=== PATIENT | female | born 1995 | race Caucasian/White ===

== ENCOUNTER 2016-06-18 20:55 | Emergency (ER) | payer MEDICAID ==
[~2016-06-18] VITALS: Ht 162.6 cm; Wt 85.8 kg
[2016-06-18 21:03] VITALS: BP 106/63
--- NOTE | 2016-06-19 00:12 | NUR ---
PATIENT PRESENTS TO ED WITH C/O BACK PAIN . PT DENIES N/V/D; SKIN IS PINK/WARM/DRY; AAOX4 WITH EVEN AND STEADY GAIT; LUNGS CLEAR BL; HR EVEN AND REGULAR; PT DENIES ANY FEVER, CP, SOB, OR COUGH AT THIS TIME; PATIENT STATES PAIN OF 6/10 AT THIS TIME; VSS; PATIENT POSITIONED FOR COMFORT; HOB ELEVATED; BEDRAILS UP X2; BED DOWN. ER MD MADE AWARE OF PT STATUS.
--- NOTE | 2016-06-19 00:17 | NUR ---
René mejia in [facility] - 06/19/16 at 0209 by MEDMANJINDER TO ER BED 1
--- NOTE | 2016-06-19 01:14 | NUR ---
DR RICHARD AT BEDSIDE
[2016-06-19] MEDS ORDERED: KETOROLAC 60 MG/2 ML VIAL IM ONE (01:15)
--- NOTE | 2016-06-19 01:49 | NUR ---
Note roberto in EDM - 06/19/16 at 0643 by EMMETT Patient discharged with v/s stable. Written and verbal after care instructions given and explained. Patient alert, oriented and verbalized understanding of instructions. Ambulatory with steady gait. All questions addressed prior to discharge. ID band removed. Patient advised to follow up with PMD. Rx of NORCO AND MOTRIN given. Patient educated on indication of medication including possible reaction and side effects. Opportunity to ask questions provided and answered.
[2016-06-19 01:55] VITALS: BP 104/68
--- NOTE | 2016-06-19 01:55 | NUR ---
Patient discharged with v/s stable. Written and verbal after care instructions given and explained. Patient alert, oriented and verbalized understanding of instructions. Ambulatory with steady gait. All questions addressed prior to discharge. ID band removed. Patient advised to follow up with PMD. Rx of NORCO AND MOTRIN given. Patient educated on indication of medication including possible reaction and side effects. Opportunity to ask questions provided and answered.
== END 2016-06-19 01:55 | disposition home or self-care (01) ==
LOC: MED 20:55
DX: M54.5 Low back pain (principal); V89.2XXA Person injured in unspecified motor-vehicle accident, traffic, initial encounter; Y93.89 Activity, other specified; Y92.89 Other specified places as the place of occurrence of the external cause; Y99.8 Other external cause status
CPT/HCPCS: 81002; 81025; 96372; 99283; J1885

== ENCOUNTER 2017-12-06 23:30 | Emergency (ER) | payer MEDICAID ==
[~2017-12-06] VITALS: Ht 152.4 cm; Wt 77.1 kg
[2017-12-06 23:39] VITALS: BP 107/71
--- NOTE | 2017-12-06 23:42 | NUR ---
TO BED # 10 AMBULATORY, REPORT GIVEN TO SINCERE SR
--- NOTE | 2017-12-07 | NUR ---
PT BIB SELF FOR LOWER ABD PAIN S/P HAVING SEX YESTERDAY. PT STATES SHE HAS HAD ABD PAIN FOR 2 WEEKS AND AFTERING HAVING INTERCOURSE SHE HAD INCREASING PAIN AND PAIN ON AMBULATION. PT DENIES UTI SYMPTOMS, VAGINAL BLEEDING, D/C. ABD IS ROUND, SOFT, TENDER, ACTIVE BS X4. PT IS LAYING IN BED, FACIAL GRIMACING, PT POSITIONED TO COMFORT, ER MD AWARE OF PT STATUS.
[2017-12-07 00:28] LABS: APPEARANCE,URINE CLEAR (CLEAR); BILIRUBIN,URINE NEGATIVE (NEGATIVE); BLOOD, URINE NEGATIVE (NEGATIVE); COLOR,URINE YELLOW (YELLOW); LEUKOCYTE ESTERASE ,URINE NEGATIVE (NEGATIVE); NITRITE, URINE NEGATIVE (NEGATIVE); PH,URINE 6.5 (5.0-9.0); UGLUCOSE NEGATIVE (NEGATIVE)
[2017-12-07] MEDS ORDERED: KETOROLAC 30 MG/ML VIAL IM ONE (01:20)
[2017-12-07] MEDS ORDERED: ONDANSETRON 4 MG ODT PO ONE (01:20)
--- NOTE | 2017-12-07 02:33 | NUR ---
Patient discharged with v/s stable. Written and verbal after care instructions given and explained. Patient verbalized understanding. Ambulatory with steady gait. All questions addressed prior to discharge. Advised to follow up with PMD.
[2017-12-07 02:34] VITALS: BP 112/70
== END 2017-12-07 02:34 | disposition home or self-care (01) ==
LOC: MED 23:30
DX: R10.31 Right lower quadrant pain (principal); R11.0 Nausea; Z88.1 Allergy status to other antibiotic agents
CPT/HCPCS: 74176; 76830; 81003; 81025; 96372; 99285; J1885; S0119

== ENCOUNTER 2020-10-19 22:45 | Emergency (ER) | payer OTHER ==
[~2020-10-19] VITALS: Ht 152.4 cm; Wt 81.6 kg
[2020-10-19 22:53] VITALS: BP 113/80
--- NOTE | 2020-10-20 00:04 | NUR ---
Dr. Berg examining patient.
--- NOTE | 2020-10-20 00:15 | NUR ---
To ED bed 07
--- NOTE | 2020-10-20 00:16 | NUR ---
midsternal chest pain that started 1 hour ago. states sharp and pressure feeling on chest. pt states had bunionectomy done on 09/24/20 and was told to come to ER if started having chest pains to r/o PE or any embolism. patient reports 6/10 pain that is sharp, feels like pressure, and constant. patient denies taking any pain medication no hx allx to vancomycin
[2020-10-20] MEDS ORDERED: ACETAMINOPHEN EXTRA STRENGTH 500 MG TAB PO ONE (00:20)
[2020-10-20] MEDS ORDERED: PANTOPRAZOLE 40 MG TABEC PO ONE (00:20)
[2020-10-20 00:48] LABS: BASOPHILS # (AUTO) 0.1 K/uL (0.00-0.22); BASOPHILS % (AUTO) 0.7 % (0.0-2.0); EOSINOPHILS # (AUTO) 0.5 K/uL (0-0.4); EOSINOPHILS % (AUTO) 3.4 % (0.0-4.0); HEMATOCRIT 39.1 % (36-48); HEMOGLOBIN 12.5 g/dL (12.0-16.0); LYMPHOCYTES # (AUTO) 3.7 K/uL (2.5-16.5); LYMPHOCYTES % (AUTO) 26.5 % (20.5-51.1); MEAN CORPUSCULAR HEMOGLOBIN 25 pg (27-31); MEAN CORPUSCULAR HGB CONC 32 g/dL (33-37); MEAN CORPUSCULAR VOLUME 78.2 fL (80-94); MONOCYTES # (AUTO) 1.1 K/uL (0.8-1.0); MONOCYTES % (AUTO) 8.1 % (1.7-9.3); NEUTROPHILS # (AUTO) 8.5 K/uL (1.8-7.7); NEUTROPHILS % (AUTO) 61.3 % (42.2-75.2); PLATELET COUNT (AUTO) 344 K/uL (140-450); RED CELL DISTRIBUTION WIDTH 14.8 % (11.6-13.7); WHITE BLOOD COUNT (AUTO) 13.9 K/uL (4.8-10.8)
--- NOTE | 2020-10-20 01:31 | NUR ---
Patient appears to be resting comfortably in bed. Vital Signs within normal limits. Respirations even and unlabored. Safety measures in place. Will continue to monitor patient
[2020-10-20 02:22] VITALS: BP 97/55
--- NOTE | 2020-10-20 02:22 | NUR ---
Patient discharged with v/s stable. Written and verbal after care instructions given and explained. Patient verbalized understanding. Ambulatory with steady gait. ID band removed. All questions addressed prior to discharge. Advised to follow up with PMD.
[2020-10-21 22:49] LABS: ALBUMIN 3.8 g/dL (3.4-5.0); ANION GAP 12.5 (8-16); CARBON DIOXIDE 25.8 mmol/L (21-32); CREATININE 0.7 mg/dL (0.6-1.3); POTASSIUM 4.3 mmol/L (3.5-5.1); TOTAL BILIRUBIN 0.2 mg/dL (0.0-1.0)
== END 2020-10-20 02:22 | disposition home or self-care (01) ==
LOC: MED 22:45
DX: R07.2 Precordial pain (principal); Z88.8 Allergy status to other drugs, medicaments and biological substances; Z98.890 Other specified postprocedural states
CPT/HCPCS: 36415; 71045; 80053; 84484; 85025; 85379; 93005; 99285

== ENCOUNTER 2021-10-23 09:03 | Observation (INO) | payer OTHER ==
[~2021-10-23] VITALS: Ht 149.9 cm; Wt 77.1 kg
[2021-10-23 09:34] VITALS: BP 108/56
[2021-10-23] MEDS ORDERED: PRETAB PO (10:25)
[2021-10-23 10:45] LABS: BASOPHILS % (AUTO) 0.4 % (0.0-2.0); EOSINOPHILS # (AUTO) 0.1 K/uL (0-0.4); EOSINOPHILS % (AUTO) 0.6 % (0.0-4.0); HEMATOCRIT 32.7 % (36-48); HEMOGLOBIN 10.5 g/dL (12.0-16.0); LYMPHOCYTES # (AUTO) 1.9 K/uL (2.5-16.5); LYMPHOCYTES % (AUTO) 16.6 % (20.5-51.1); MEAN CORPUSCULAR HEMOGLOBIN 25 pg (27-31); MEAN CORPUSCULAR HGB CONC 32 g/dL (33-37); MEAN CORPUSCULAR VOLUME 77.1 fL (80-94); MONOCYTES # (AUTO) 0.7 K/uL (0.8-1.0); MONOCYTES % (AUTO) 6.4 % (1.7-9.3); NEUTROPHILS # (AUTO) 8.9 K/uL (1.8-7.7); PLATELET COUNT (AUTO) 322 K/uL (140-450); RED BLOOD CELL COUNT(AUTO) 4.25 MIL/uL (4.20-5.40); RED CELL DISTRIBUTION WIDTH 13.6 % (11.6-13.7); WHITE BLOOD COUNT (AUTO) 11.7 K/uL (4.8-10.8)
--- NOTE | 2021-10-23 11:40 | NUR ---
PATIENT HAS BEEN SCREENED AND CATEGORIZED LOW NUTRITION RISK. PATIENT WILL BE SEEN WITHIN 7 DAYS OF ADMISSION. 10/29/[address]
[2021-10-23 12:15] LABS: ALBUMIN 2.4 g/dL (3.4-5.0); ANION GAP 11.6 (8-16); CARBON DIOXIDE 24.3 mmol/L (21-32); CREATININE 0.5 mg/dL (0.6-1.3); POTASSIUM 3.9 mmol/L (3.5-5.1); TOTAL BILIRUBIN 0.2 mg/dL (0.0-1.0)
== END 2021-10-23 13:00 | disposition home or self-care (01) ==
LOC: MLD 09:03
PROVIDERS: ADMIT Obstetrics & Gynecology; ATTEND Obstetrics & Gynecology
DX: Z34.83 Encounter for supervision of other normal pregnancy, third trimester (principal); Z3A.28 28 weeks gestation of pregnancy
CPT/HCPCS: 36415; 59025; 80053; 81000; 85025; 86592; 86886; 86900; 86901; 96372; G0378; G0379; J2790

== ENCOUNTER 2021-11-25 19:31 | Observation (INO) | payer OTHER ==
[~2021-11-25] VITALS: Ht 152.4 cm; Wt 78.0 kg
[~2021-11-25 19:31] MED LIST: PRETAB PO
[2021-11-25 20:20] VITALS: BP 111/61
== END 2021-11-25 22:05 | disposition home or self-care (01) ==
LOC: MLD 19:31
PROVIDERS: ADMIT Obstetrics & Gynecology; ATTEND Obstetrics & Gynecology
DX: O26.893 Other specified pregnancy related conditions, third trimester (principal); R10.9 Unspecified abdominal pain; O99.891 Other specified diseases and conditions complicating pregnancy; M54.9 Dorsalgia, unspecified; Z3A.33 33 weeks gestation of pregnancy
CPT/HCPCS: 59025; 81000; G0378

== ENCOUNTER 2022-01-09 | Inpatient (IN) | payer OTHER ==
[~2022-01-09] VITALS: Ht 149.9 cm; Wt 79.8 kg
[2022-01-09] MEDS ORDERED: LACTATED RINGERS 1,000 ML IV SCH (00:35)
[2022-01-09] MEDS ORDERED: CARBOPROST 250 MCG/ML AMP IM PRN (00:35)
[2022-01-09] MEDS ORDERED: METHYLERGONOVINE 0.2 MG/ML AMP IM PRN ×2 (00:35→06:35)
[2022-01-09] MEDS ORDERED: OXYTOCIN 20 UNITS in LACTATED RINGERS 1,000 ML IV SCH (00:35)
[2022-01-09] MEDS ORDERED: MORPHINE SULFATE 5 MG/ML VIAL IVP PRN (00:35)
[2022-01-09] MEDS ORDERED: ONDANSETRON 4 MG/2 ML VIAL IVP PRN (00:35)
[2022-01-09 01:03] LABS: APPEARANCE,URINE CLEAR (CLEAR); BILIRUBIN,URINE NEGATIVE (NEGATIVE); BLOOD, URINE NEGATIVE (NEGATIVE); COLOR,URINE YELLOW (YELLOW); LEUKOCYTE ESTERASE ,URINE NEGATIVE (NEGATIVE); NITRITE, URINE NEGATIVE (NEGATIVE); UGLUCOSE NEGATIVE (NEGATIVE)
[2022-01-09 01:04] LABS: BASOPHILS # (AUTO) 0.1 K/uL (0.00-0.22); BASOPHILS % (AUTO) 0.7 % (0.0-2.0); EOSINOPHILS % (AUTO) 0.2 % (0.0-4.0); HEMATOCRIT 30.7 % (36-48); HEMOGLOBIN 9.8 g/dL (12.0-16.0); LYMPHOCYTES # (AUTO) 2.4 K/uL (2.5-16.5); LYMPHOCYTES % (AUTO) 18.1 % (20.5-51.1); MEAN CORPUSCULAR HEMOGLOBIN 23 pg (27-31); MEAN CORPUSCULAR HGB CONC 32 g/dL (33-37); MEAN CORPUSCULAR VOLUME 70.3 fL (80-94); MONOCYTES % (AUTO) 7.2 % (1.7-9.3); NEUTROPHILS # (AUTO) 9.9 K/uL (1.8-7.7); NEUTROPHILS % (AUTO) 73.8 % (42.2-75.2); PLATELET COUNT (AUTO) 270 K/uL (140-450); RED BLOOD CELL COUNT(AUTO) 4.37 MIL/uL (4.20-5.40); WHITE BLOOD COUNT (AUTO) 13.4 K/uL (4.8-10.8)
[2022-01-09 01:20] VITALS: BP 125/80
[2022-01-09 01:25] LABS: RBC,URINE 0-5 /HPF (0-5); WBC,URINE 0-5 /HPF (0-5)
[2022-01-09 01:26] LABS: CALCIUM OXALATE CRYSTALS,UR 30-50 /HPF (None Seen)
[2022-01-09 01:30] LABS: ALBUMIN 2.4 g/dL (3.4-5.0); ANION GAP 13.4 (8-16); CARBON DIOXIDE 24.4 mmol/L (21-32); CREATININE 0.7 mg/dL (0.6-1.3); POTASSIUM 3.8 mmol/L (3.5-5.1); TOTAL BILIRUBIN 0.3 mg/dL (0.0-1.0)
[2022-01-09] MEDS ORDERED: OXYTOCIN 20 UNITS/LR PREMIX 1,000 ML IV ONE (01:40)
[2022-01-09 01:42] LABS: PROTHROMBIN TIME 9.1 secs (10.8-13.4)
[2022-01-09] MEDS ORDERED: TEMAZEPAM 15 MG CAP PO PRN (06:35)
[2022-01-09] MEDS ORDERED: IBUPROFEN 800 MG TAB PO PRN (06:35)
[2022-01-09] MEDS ORDERED: oxyCODONE/APAP 5/325 MG 1 TAB TAB PO PRN (06:35)
[2022-01-09] MEDS ORDERED: BENZOCAINE/MENTHOL 20%-0.5% 60 GM CAN TP PRN (06:35)
[2022-01-09] MEDS ORDERED: OXYTOCIN 10 UNITS/ML VIAL IM PRN (06:35)
[2022-01-09] MEDS ORDERED: METHYLERGONOVINE 0.2 MG TAB PO PRN (06:35)
[2022-01-09] MEDS ORDERED: MEASLES, MUMPS, AND RUBELLA 1 VIAL SQVAC ONE (06:35)
[2022-01-09] MEDS ORDERED: HYDROcodone/APAP 5/325 MG 1 TAB TAB PO PRN (06:35)
--- NOTE | 2022-01-09 09:48 | NUR ---
PATIENT HAS BEEN SCREENED AND CATEGORIZED LOW NUTRITION RISK. PATIENT WILL BE SEEN WITHIN 7 DAYS OF ADMISSION. 01/16/[address]
[2022-01-09] MEDS ORDERED: DOCUSATE SOD/SENNA 50/8.6 MG 1 TAB PO SCH (21:00)
[2022-01-10 09:56] LABS: HEMATOCRIT 30.4 % (36-48); HEMOGLOBIN 9.5 g/dL (12.0-16.0)
== END 2022-01-10 18:32 | disposition home or self-care (01) | DRG 560 ==
LOC: MLD → OBSVTOIN 00:37 → MFCC 07:40
PROVIDERS: ADMIT Obstetrics & Gynecology; ATTEND Obstetrics & Gynecology
PROC: 10E0XZZ Delivery of Products of Conception, External Approach (ICD-10-PCS; principal; 2022-01-09)
DX: O69.81X0 Labor and delivery complicated by cord around neck, without compression, not applicable or unspecified (principal); Z37.0 Single live birth; D50.9 Iron deficiency anemia, unspecified; O70.0 First degree perineal laceration during delivery; Z3A.40 40 weeks gestation of pregnancy; Z20.822 Contact with and (suspected) exposure to COVID-19
CPT/HCPCS: 36415; 59409; 80053; 81001; 85018; 85025; 85610; 85730; 86592; 86886; 86900; 86901; J2590; J2790; J7120